=== PATIENT | male | born 1985 | race African-American/Black ===

== ENCOUNTER 2016-06-29 00:20 | Emergency (ER) | payer OTHER ==
[~2016-06-29] VITALS: Ht 175.3 cm; Wt 86.2 kg
[2016-06-29] MEDS ORDERED: PREDNISONE 20 M20 MG PO (00:55)
[2016-06-29] MEDS ORDERED: VENTOLIN HFA 1818 GM INH (00:55)
[2016-06-29 01:33] VITALS: BP 101/78
== END 2016-06-29 01:34 | disposition home or self-care (01) ==
LOC: ER 00:20
DX: J45.901 Unspecified asthma with (acute) exacerbation (principal); F10.99 Alcohol use, unspecified with unspecified alcohol-induced disorder

== ENCOUNTER 2017-08-21 04:02 | Inpatient (IN) | payer OTHER ==
[~2017-08-21] VITALS: Ht 175.3 cm; Wt 89.4 kg
--- NOTE | ~2017-08-21 | EKG ---
[address] [place] [address] ELECTROCARDIOGRAM REPORT Name: PATRICIA COON Room #: 416-P [facility] ..#: [id number] Admission: 08/21/17 Attend Phys: Luis Alberto Zhao MD Discharge: 08/22/17 Date of : 89 Report #: [id number] THIS REPORT FOR: //name// [facility] ED Test Date: 2017-08-21 Test Time: 04:27:48 Pat Name: PATRICIA COON Department: Room: [facility] Gender: M Systems Architecture Analyst: JUANA : 1985 Requested By: Kiran Haider Order Number: [id number] MD: Kelvin Johnson Measurements Intervals [place] Rate: 69 P: 52 [place]: 181 QRS: 90 QRSD: 100 T: 43 QT: 406 QTc: 435 Interpretive Statements Sinus rhythm Borderline right axis deviation ST elev, probable normal early repol pattern No previous ECG available for comparison Electronically Signed On 08-24-2017 13:14:09 CDT by Kelvin Johnson [email or web address] <ELECTRONICALLY SIGNED> By: Kelvin Johnson MD, [facility] 08/24/17 1314 6 6 Kelvin Johnson MD, FAC /EPI
[~2017-08-21 04:02] MED LIST: PREDNISONE 20 M20 MG PO; VENTOLIN HFA 1818 GM INH
[2017-08-21 04:04] VITALS: BP 121/69
[2017-08-21] MEDS ORDERED: PREDNISONE 10 M10 MG PO (04:07)
[2017-08-21 04:36] LABS: ABSOLUTE NEUTROPHILS 4.2 thou/uL (1.4-8.2); BASOPHILS 0.4 % (0.0-2.0); EOSINOPHILS 8.7 % (0.0-3.0); HEMATOCRIT 47.7 % (42.0-52.0); HEMOGLOBIN 16.5 gm/dL (14.0-18.0); LYMPHOCYTES 38.6 % (24.0-44.0); MCH 30.3 pg (26.0-34.0); MCHC 34.7 g/dL (28.0-37.0); MCV 87.4 fL (80.0-100.0); MONOCYTES 6.1 % (1.0-8.0); PLATELET COUNT 311 thou/uL (150-400); POLYS 46.2 % (36.0-66.0); RBC 5.46 mil/uL (4.50-6.00); RDW 13.4 % (10.5-14.5)
[2017-08-21 04:43] LABS: CALCIUM 9.5 mg/dL (8.5-10.1); CREATININE 1.2 mg/dL (0.7-1.3); POTASSIUM 3.6 mmol/L (3.5-5.1)
[2017-08-21 05:58] VITALS: BP 137/81
[2017-08-21 16:10] VITALS: BP 133/79
[2017-08-21 20:00] VITALS: BP 121/64
[2017-08-22 04:00] VITALS: BP 116/401
[2017-08-22 05:40] LABS: MCH 30.5 pg (26.0-34.0); MCHC 34.7 g/dL (28.0-37.0); MCV 87.9 fL (80.0-100.0); RBC 5.23 mil/uL (4.50-6.00); RDW 14.1 % (10.5-14.5); WBC 19.1 thou/uL (4.0-11.0)
[2017-08-22 05:42] LABS: CALCIUM 9.3 mg/dL (8.5-10.1); POTASSIUM 4.8 mmol/L (3.5-5.1)
[2017-08-22 07:33] VITALS: BP 139/65
[2017-08-22] MEDS ORDERED: SINGULAIR 10 MG10 M1 PO (11:03)
[2017-08-22] MEDS ORDERED: TYLENOL325 MG PO (11:03)
[2017-08-22] MEDS ORDERED: VENTOLIN HFA 1818 GM INH (11:16)
[2017-08-22] MEDS ORDERED: PREDNISONE 10 M10 MG PO (11:16)
[2017-08-22 11:22] VITALS: BP 139/65
== END 2017-08-22 12:45 | disposition home or self-care (01) | DRG 202 ==
LOC: ER 04:02 → EROBS 05:09 → 4N 05:09
PROVIDERS: Emergency Medicine; Hospitalist
DX: J45.901 Unspecified asthma with (acute) exacerbation (principal); J96.91 Respiratory failure, unspecified with hypoxia; J45.909 Unspecified asthma, uncomplicated; F17.210 Nicotine dependence, cigarettes, uncomplicated; Z91.013 Allergy to seafood
CPT/HCPCS: 10790